=== PATIENT | female | born 1970 | race Caucasian/White ===

== ENCOUNTER 2024-04-18 07:33 | Day surgery (SDC) | payer MEDICAID ==
[~2024-04-18] VITALS: Ht 162.6 cm; Wt 71.7 kg
[~2024-04-18 07:33] MED LIST: NAPR220T66 PO
[2024-04-18 08:10] LABS: UCG SCREEN NEGATIVE
[2024-04-18] MEDS: LACTATED RINGERS 1,000 ML IV SCH (08:43)
[2024-04-18] MEDS ORDERED: BUPIVACAINE HCL/PF 0.5% (5MG/ML) 10ML ONE (09:26)
[2024-04-18] MEDS ORDERED: SKIN ADHESIVE 0.7 GM EA TOP ONE (09:26)
[2024-04-18] MEDS ORDERED: PROPOFOL 200MG/20ML VIAL IV ONE (09:33)
[2024-04-18] MEDS ORDERED: MIDAZOLAM HCL 2 MG/2 ML VIAL ONE (09:34)
[2024-04-18] MEDS ORDERED: FENTANYL CITRATE/PF 50MCG/ML 2ML VIAL ONE (09:54)
[2024-04-18] MEDS ORDERED: ROCURONIUM BROMIDE 10MG/ML VIAL 5ML IV ONE (09:54)
[2024-04-18] MEDS ORDERED: GLYCOPYRROLATE 0.2 MG/ML 2ML VIAL ONE (09:54)
[2024-04-18] MEDS ORDERED: ONDANSETRON HCL 4MG/2ML INJ ONE (09:54)
[2024-04-18] MEDS ORDERED: CEFAZOLIN SODIUM 1000MG/VIAL ONE (09:55)
[2024-04-18] MEDS ORDERED: DEXAMETHASONE 4MG/ML 1ML VIAL ONE (09:55)
[2024-04-18] MEDS ORDERED: KETOROLAC 30MG/ML VIAL ONE (09:55)
[2024-04-18] MEDS ORDERED: HYDROMORPHONE HCL/PF 2MG/ML CPJ IV PRN (10:15)
[2024-04-18] MEDS ORDERED: MEPERIDINE HCL/PF 25MG/ML CPJ IV PRN (10:15)
[2024-04-18] MEDS ORDERED: SUGAMMADEX SODIUM 200 MG/2 ML VIAL IV NR (10:15)
[2024-04-18] MEDS: ONDANSETRON HCL 4MG/2ML INJ IV PRN (12:05)
[2024-04-18 12:06] VITALS: BP 142/90; PULSE 76; RESP 28
[2024-04-18] MEDS: FENTANYL CITRATE/PF 50MCG/ML 2ML VIAL IV PRN (12:06)
== END 2024-04-18 13:50 | disposition home or self-care (01) ==
LOC: OR 07:33
PROVIDERS: ATTEND Surgery
DX: K80.10 Calculus of gallbladder with chronic cholecystitis without obstruction (principal); Z79.899 Other long term (current) drug therapy; Z98.890 Other specified postprocedural states
CPT/HCPCS: 47562; 81025; 88304; J3010; J3490 ×3; J0690; J1100; J1885; J2250; J2405; J2704; J7120